=== PATIENT | male | born 1945 | race Caucasian/White ===

== ENCOUNTER 2016-11-14 22:54 | Observation (INO) | payer OTHER ==
[~2016-11-14 22:54] MED LIST: ALBUTEROL2.5 MG/0.5 INH; ALLERGY4 MG PO; ASPIR 8181 MG PO; ASPIRIN EC81 MG PO; DOXYCYCLINE HY100 MG PO; ETODOLAC400 MG PO; EVZIO0.4 MG/0.4; FENTANYL1 EAC7 TD; FLOMAX0.4 MG PO; FLUNISOLIDE1 SPRAY; GABAPENTIN400 MG PO; HYDROCODON-ACE1 EAC8 PO; MILK OF MA2400 MG/10 PO; MIRTAZAPINE30 MG PO; MORPHINE S100 MG/5 M PO; MORPHINE S20 MG/5 ML PO; NORCO 5-325 TA1 EACH PO; OMEPRAZOLE20 MG PO; OXYCODONE HCL10 MG PO; PREDNISONE20 MG PO; PROVENTIL HFA6.7 GM INH; SINGULAIR10 MG PO; SPIRIVA18 MCG INH; SYMBICORT 16010.2 GM INH; TRAZODONE HCL150 MG PO; VITAMIN D31000 UNIT PO
--- NOTE | 2016-11-15 03:45 | NUR ---
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 PT STOOD AND TRANSFERED TO BED. PT OXYGEN WITH EXERTION DECREASED TO LOW 80'S. HAD PT LAY IN BED WITH HOB AT 60 DEGREE SOFIA FOR PT COMFORT. INSTRUCTED PT TO TAKE SLOW DEEP BREATH THROUGH NOSE. PT OXYGEN BACK UP TO 98% ON 10L. PT REFUSES TO WEAR OXYMASK. PT HAS EDUCATION NEEDS THAT WILL NEED TO BE ADRESSED PRIOR TO DISCHARGE REGUARDING OXYGEN USUAGE AND OTHER TOPICS. WILL PROVIDE PT WITH EDUCATION PHAMPLETES AND RE-EDUCATE THROUGHOUT STAY.
--- NOTE | 2016-11-15 04:00 | NUR ---
PT RESTING IN BED. ADMISSION COMPLETED. PT NOTED TO HAVE EDEMA IN BILAT LOWER EXTREMITIES. PT STATES THEY HAVE BEEN THIS WAY RECENTLY. PT BOWEL TONES ACTIVE. LUNGS ARE DIMINISHED/TIGHT AND WHEEZING NOTED AT TIMES. WHEN ASKING ADMISSION QUESTIONS ASKED IF PT TAKES ASPRIN. PT STATED "EHHH... SOMETIMES WHEN I REMEBER, I AM SUPPOSED TO TAKE SO MANY MEDICATIONS AND I FORGET SOMETIMES". PROVIDED PT WITH EDUCATION AND IMPORTANCE OF TAKING MEDICATIONS MD PRESCRIBES AT THE CORRECT TIME INTERVALS. WILL CONTINUE TO PROVIDE PT WITH EDUCATION THROUGHOTU STAY.
--- NOTE | 2016-11-15 04:15 | NUR ---
PT URINATED IN ED BEFORE COMING TO CCU. WILL CONTINUE TO MONITOR OUTPUT.
--- NOTE | 2016-11-15 04:30 | NUR ---
PT RESTING IN BED AT THIS TIME. DENIES ANY ISSUES. PT CALL LIGHT IN REACH. TV IS ON AT THIS TIME. WILL CONTINUE TO MONITOR.
--- NOTE | 2016-11-15 06:35 | NUR ---
PT RESTING IN BED AT THIS TIME. OXYGEN DECREASED TO 8L. WILL CONTINUE TO CLOSELY MONITOR.
--- NOTE | 2016-11-15 09:24 | NUR ---
DR EDMOND AND THE MEDICAL STUDENTS INTO SEE THE PATIENT THIS MORNING. NEW ORDERS RECEIVED. PT IS ABLE TO STAND AT THE EDGE OF THE BED TO VOID, BUT HIS SPO2 DECREASE TO 78% WITH HIS O2 INPLACE. PT IS ABLE TO RECOVER AFTER A FEW MINUTES. PT IS VOIDING IN THE URINAL YELLOW IN COLOR NO ORDOR NOTED. PT HAS BEEN TALKING ON THE PHONE AT TIMES.
--- NOTE | 2016-11-15 10:07 | NUR ---
PT REFUSED A SHOWER AT THIS TIME. HE WAS GIVEN TOOTH BRUSH, AND WARM BATH WIPES TO WASH UP WITH. NURSING STAFF OFFERED TO HELPPT, BUT HE REFUSED HELP. "I HAVE NEVER TO A WOMEN NO WHILE I WAS IN BED"
--- NOTE | 2016-11-15 10:14 | NUR ---
MEDICATED WITH 10MG OF OXYCODONE PO AT THIS TIME PT STATES "WHAT A JOKE I TAKE 20MG 4 TIMES A DAY OF THIS SHIT".
[2016-11-15] MEDS ORDERED: NICORETTE4 M2 BUCCAL (12:00)
[2016-11-15] MEDS ORDERED: PREDNISONE20 MG PO (12:04)
--- NOTE | 2016-11-15 12:28 | EKG ---
[facility] [address] [place] [address] Signed Sinus tachycardia Rightward axis Borderline ECG When compared with ECG of 21-OCT-2016 01:57, Borderline criteria for Inferior infarct are no longer present Confirmed by MAN EDMOND MD ([id number]) on 11/15/2016 12:27:53 PM Electronically Signed By: MAN EDMOND MD 11/15/16 1228 PATIENT NAME: ERICKSON MCCRACKEN Electrocardiogram DATE OF : 49 PHYSICIAN: MAN EDMOND MD REPORT #: [id number] REPORT IS CONFIDENTIAL AND NOT TO BE RELEASED WITHOUT AUTHORIZATION
--- NOTE | 2016-11-15 12:29 | NUR ---
PHARMACY INTO TALK WITH PT AT THIS TIME, AND DAUGHTER HAS SHOWN UP ALSO AT THIS TIME.
--- NOTE | 2016-11-15 12:50 | NUR ---
DISCHARGE DID NOT SEE PT THIS AM BEFORE DISCHARGE
--- NOTE | 2016-11-15 12:51 | NUR ---
DISCHARGE INSTURCATION GIVEN TO DAUGHTER AND PATTIENT, ALL QUESTIONS ANSWERED. PT WENT OUT VIA WHEELCHAIR WITH NURSING STAFF. PT AND DAUGHTER UNDERSTAND AND HAVE ALL MEDICAL SUPPLIES NEED FOR HOME.
--- NOTE | 2016-11-15 13:05 | NUR ---
PT RESTING IN BED. INVITED ME IN. HE IS ALERT AND AWARE OF HIS SURROUNDINGS. HAD GOOD VISIT, JOKED SOME. BUT HE DID GET SERIOUS FOR A MOMENT, AND THINGS WENT BACK TO [facility] AND COMING HOME. STILL VERY REAL THE WAY HE WAS TREATED BY PROTESTORS. GOD BLESS HIM. WILL CONTINUE TO FOLLOW
== END 2016-11-15 12:50 | disposition home or self-care (01) ==
LOC: ED 22:54 → CCU 22:55
PROVIDERS: ADMIT Internal Medicine
DX: J44.1 Chronic obstructive pulmonary disease with (acute) exacerbation (principal); J96.11 Chronic respiratory failure with hypoxia; J96.12 Chronic respiratory failure with hypercapnia; C34.92 Malignant neoplasm of unspecified part of left bronchus or lung; J84.10 Pulmonary fibrosis, unspecified; J45.909 Unspecified asthma, uncomplicated; G89.3 Neoplasm related pain (acute) (chronic); M79.602 Pain in left arm; M79.601 Pain in right arm; M25.569 Pain in unspecified knee; M25.559 Pain in unspecified hip; M54.2 Cervicalgia; F17.210 Nicotine dependence, cigarettes, uncomplicated; K21.9 Gastro-esophageal reflux disease without esophagitis; Z92.21 Personal history of antineoplastic chemotherapy; Z92.3 Personal history of irradiation; Z99.81 Dependence on supplemental oxygen; Z88.5 Allergy status to narcotic agent; Z88.8 Allergy status to other drugs, medicaments and biological substances; Z79.82 Long term (current) use of aspirin; Z79.891 Long term (current) use of opiate analgesic; Z79.51 Long term (current) use of inhaled steroids; Z79.899 Other long term (current) drug therapy
CPT/HCPCS: 71020; 71260; 80053; 83735; 83880; 84484; 85025; 85379; 85610; 85730; 93005; 93010; 94640; 94644; 96372; 96374; 96375; 99284; 99406; G0378; J1170; J1650; J2405; J2930; J7512; Q9967